=== PATIENT | male | born 1955 | race Caucasian/White ===

== ENCOUNTER 2020-03-11 06:54 | Day surgery (SDC) | payer OTHER, SELFPAY ==
[~2020-03-11] VITALS: Ht 188 cm; Wt 110.2 kg
[2020-03-11] MEDS ORDERED: SIMETHICONE 40 MG/0.6 ML ML ONE (07:24)
[2020-03-11] MEDS: fentaNYL CITRATE/PF 100 MCG/2 ML AMP ONE ×2 (08:08→08:11)
[2020-03-11] MEDS: MIDAZOLAM HCL 5 MG/5 ML VIAL ONE ×3 (08:08→08:13)
[2020-03-11 09:23] VITALS: BP_SYST 131
== END 2020-03-11 09:20 | disposition home or self-care (01) ==
LOC: SMU 06:54 → SDS 06:54
PROVIDERS: ATTEND Internal Medicine
DX: R13.10 Dysphagia, unspecified (principal); K29.70 Gastritis, unspecified, without bleeding; Z20.828 Contact with and (suspected) exposure to other viral communicable diseases; Z79.899 Other long term (current) drug therapy
CPT/HCPCS: 36415; 43239; 87081; 88305; 88312; 88313; 99152; G0378; J2250; J3010; J7030; U0003

== ENCOUNTER 2022-11-12 17:12 | Inpatient (IN) | payer OTHER ==
[~2022-11-12] VITALS: Ht 182.9 cm; Wt 90.7 kg
[~2022-11-12 17:12] MED LIST: ACET325T39 PO; APIX5TAB PO; BISA-79 PO; CALC500T3 PO; DOCU-159 PO; IPRA3AMP19 INH; LIP10 PO; MEMA10TA56 PO; ONDA4TAB5 PO; PRO10 PO; PSYL1PAC10 PO; QUET50TA92 PO; RIVA6CAP18 PO; TRAZ-250 PO
[2022-11-12 17:24] VITALS: RESP 20; O2SAT 98
[2022-11-12 20:42] LABS: BASOPHILS % (AUTO) 0.6 % (0.0-2.0); EOSINOPHILS # (AUTO) 0.1 K/uL (0.0-0.4); EOSINOPHILS % (AUTO) 1.2 % (0.0-4.0); HEMATOCRIT 44.1 % (36-54); HEMOGLOBIN 14.7 g/dL (14.0-18.0); LYMPHOCYTES # (AUTO) 1.8 K/uL (1.0-5.5); LYMPHOCYTES % (AUTO) 26.7 % (20.5-51.5); MEAN CORPUSCULAR HEMOGLOBIN 31 pg (27-31); MEAN CORPUSCULAR HGB CONC 33 % (32-36); MEAN CORPUSCULAR VOLUME 94 fL (79.0-98.0); MONOCYTES # (AUTO) 0.6 K/uL (0.0-1.0); MONOCYTES % (AUTO) 9.4 % (1.7-9.3); NEUTROPHILS # (AUTO) 4.2 K/uL (1.8-7.7); NEUTROPHILS % (AUTO) 62.1 % (40.0-70.0); PLATELET COUNT (AUTO) 229 K/uL (130-430); RED BLOOD CELL COUNT(AUTO) 4.71 MIL/uL (4.2-6.2); RED CELL DISTRIBUTION WIDTH 13.5 % (9.0-15.0); WHITE BLOOD COUNT (AUTO) 6.8 K/uL (4.8-10.8)
[2022-11-12 20:46] LABS: ANION GAP 10 (5-15); CALCIUM 9.1 mg/dL (8.4-11.0); CARBON DIOXIDE 27 mmol/L (23-29); CHLORIDE 102 mmol/L (98-107); CREATININE 0.96 mg/dL (0.55-1.30); GFR AFRICAN AMERICAN 100 mL/min (>90); GLUCOSE 81 mg/dL (74-106); POTASSIUM 3.8 mmol/L (3.5-5.1); SODIUM SERUM 139 mmol/L (136-145); UREA NITROGEN, BLOOD 17 mg/dL (8-21)
[2022-11-12 20:47] LABS: GFR NON AFRICAN-AMERICAN 83 mL/min (>90)
[2022-11-12 20:49] LABS: INR 1.1 (0.80-1.20); PROTHROMBIN TIME 11.3 SECS (9.5-12.5)
[2022-11-12 21:01] LABS: ALANINE AMINOTRANSFERASE 36 U/L (12-78); ALBUMIN 3.8 g/dL (3.4-4.8); ASPARTATE AMINOTRANSFERASE 21 U/L (10-37); TOTAL BILIRUBIN 0.7 mg/dL (0.0-1.0); TOTAL PROTEIN, SERUM 6.6 g/dL (6.4-8.3)
[2022-11-12] MEDS: NORMAL SALINE 5 ML DISP.SYRIN IVF SCH (23:15)
[2022-11-12 23:56] LABS: BILIRUBIN,URINE NEGATIVE (NEGATIVE); BLOOD, URINE NEGATIVE (NEGATIVE); CLARITY/URINE Clear (CLEAR); COLOR,URINE YELLOW (YELLOW); GLUCOSE,URINE NEGATIVE (NEGATIVE); KETONES,URINE 1+ (NEGATIVE); NITRITE, URINE NEGATIVE (NEGATIVE); PROTEIN URINE NEGATIVE (NEGATIVE); UROBILINOGEN,URINE 0.2 (0.2-1.0)
[2022-11-13 00:30] LABS: LEUKOCYTE ESTERASE ,URINE NEGATIVE (NEGATIVE)
[2022-11-13] MEDS ORDERED: MIDAZOLAM HCL 5 MG/5 ML VIAL IM ONE (02:45)
[2022-11-13] MEDS ORDERED: HALOPERIDOL LACTATE 5 MG/ML VIAL IM ONE (02:45)
[2022-11-13 05:59] VITALS: BP_SYST 121; RESP 16; TEMP 97.7; O2SAT 97
[2022-11-13 06:00] VITALS: BP_SYST 121; PULSE 71; RESP 16; TEMP 97.3
[2022-11-13 08:23] VITALS: BP_SYST 118; PULSE 68; RESP 12; TEMP 95.9; O2SAT 98
[2022-11-13] MEDS: DOCUSATE SODIUM 100 MG CAPSULE PO SCH (09:54)
[2022-11-13] MEDS: QUEtiapine FUMARATE 25 MG TABLET PO SCH ×2 (09:55→20:14)
[2022-11-13] MEDS: APIXABAN 2.5 MG TABLET PO SCH ×2 (09:55→21:41)
[2022-11-13] MEDS: MEMANTINE HCL 5 MG TABLET PO SCH ×2 (09:55→20:14)
[2022-11-13] MEDS: CALCIUM 500 MG/TAB PO SCH (09:56)
[2022-11-13] MEDS: FLUoxetine HCL 10 MG CAPSULE (PROzac) PO SCH (09:56)
[2022-11-13] MEDS: RIVASTIGMINE TARTRATE 1.5 MG CAPSULE (EXELON) PO SCH ×2 (09:56→20:13)
[2022-11-13 12:35] VITALS: BP_SYST 106; PULSE 84; RESP 17; TEMP 97.2; O2SAT 97
[2022-11-13] MEDS: NORMAL SALINE 5 ML DISP.SYRIN IVF SCH (14:00)
[2022-11-13 16:12] VITALS: BP_SYST 110; PULSE 81; RESP 16; TEMP 97.4; O2SAT 96
[2022-11-13] MEDS: ATORVASTATIN 10 MG TABLET PO SCH (20:14)
[2022-11-13 21:00] VITALS: BP_SYST 111; PULSE 88; RESP 20; TEMP 97.3; O2SAT 98
[2022-11-13] MEDS ORDERED: traZODone HCL 50 MG TABLET (DESYREL) PO SCH (21:00)
[2022-11-14 07:48] VITALS: BP_SYST 140; PULSE 88; RESP 16; TEMP 98.2; O2SAT 95
[2022-11-14 08:00] VITALS: O2SAT 98
[2022-11-14] MEDS: MEMANTINE HCL 5 MG TABLET PO SCH ×2 (09:59→21:28)
[2022-11-14] MEDS: FLUoxetine HCL 10 MG CAPSULE (PROzac) PO SCH (09:59)
[2022-11-14] MEDS: QUEtiapine FUMARATE 25 MG TABLET PO SCH ×2 (10:00→21:28)
[2022-11-14] MEDS: DOCUSATE SODIUM 100 MG CAPSULE PO SCH (10:00)
[2022-11-14] MEDS: CALCIUM 500 MG/TAB PO SCH (10:04)
[2022-11-14] MEDS: APIXABAN 2.5 MG TABLET PO SCH ×2 (10:04→21:29)
[2022-11-14] MEDS: RIVASTIGMINE TARTRATE 1.5 MG CAPSULE (EXELON) PO SCH (10:59)
[2022-11-14 11:34] VITALS: BP_SYST 111; PULSE 86; RESP 18; TEMP 98.5; O2SAT 98
[2022-11-14] MEDS: NORMAL SALINE 5 ML DISP.SYRIN IVF SCH ×3 (13:22→21:30)
[2022-11-14 15:38] VITALS: BP_SYST 114; PULSE 88; RESP 18; TEMP 97.8; O2SAT 97
[2022-11-14 20:15] VITALS: O2SAT 96
[2022-11-14 21:00] VITALS: BP_SYST 112; PULSE 84; RESP 20; TEMP 97.5; O2SAT 97
[2022-11-14] MEDS: ATORVASTATIN 10 MG TABLET PO SCH (21:28)
[2022-11-15 04:14] LABS: BASOPHILS % (AUTO) 0.7 % (0.0-2.0); EOSINOPHILS # (AUTO) 0.1 K/uL (0.0-0.4); EOSINOPHILS % (AUTO) 1.7 % (0.0-4.0); HEMATOCRIT 44.8 % (36-54); HEMOGLOBIN 14.8 g/dL (14.0-18.0); LYMPHOCYTES # (AUTO) 1.7 K/uL (1.0-5.5); LYMPHOCYTES % (AUTO) 31.1 % (20.5-51.5); MEAN CORPUSCULAR HEMOGLOBIN 31 pg (27-31); MEAN CORPUSCULAR HGB CONC 33 % (32-36); MEAN CORPUSCULAR VOLUME 93 fL (79.0-98.0); MONOCYTES # (AUTO) 0.5 K/uL (0.0-1.0); MONOCYTES % (AUTO) 8.8 % (1.7-9.3); NEUTROPHILS # (AUTO) 3.2 K/uL (1.8-7.7); NEUTROPHILS % (AUTO) 57.7 % (40.0-70.0); PLATELET COUNT (AUTO) 230 K/uL (130-430); RED BLOOD CELL COUNT(AUTO) 4.81 MIL/uL (4.2-6.2); RED CELL DISTRIBUTION WIDTH 13.7 % (9.0-15.0); WHITE BLOOD COUNT (AUTO) 5.5 K/uL (4.8-10.8)
[2022-11-15 04:47] LABS: ALBUMIN 3.5 g/dL (3.4-4.8); CREATININE 1.06 mg/dL (0.55-1.30); POTASSIUM 3.8 mmol/L (3.5-5.1); TOTAL BILIRUBIN 1.1 mg/dL (0.0-1.0); TOTAL PROTEIN, SERUM 6.1 g/dL (6.4-8.3)
[2022-11-15] MEDS: NORMAL SALINE 5 ML DISP.SYRIN IVF SCH ×3 (06:00→21:52)
[2022-11-15 09:00] VITALS: BP_SYST 129; PULSE 90; RESP 20; TEMP 97.5; O2SAT 99
[2022-11-15] MEDS: DOCUSATE SODIUM 100 MG CAPSULE PO SCH (09:11)
[2022-11-15] MEDS: QUEtiapine FUMARATE 25 MG TABLET PO SCH ×2 (09:11→21:48)
[2022-11-15] MEDS: MEMANTINE HCL 5 MG TABLET PO SCH ×2 (09:11→21:49)
[2022-11-15] MEDS: CALCIUM 500 MG/TAB PO SCH (09:11)
[2022-11-15] MEDS: FLUoxetine HCL 10 MG CAPSULE (PROzac) PO SCH (09:11)
[2022-11-15] MEDS: APIXABAN 2.5 MG TABLET PO SCH ×2 (09:15→21:50)
[2022-11-15 11:17] VITALS: BP_SYST 109; PULSE 71; RESP 17; TEMP 97.5; O2SAT 97
[2022-11-15 16:41] VITALS: BP_SYST 112; PULSE 84; RESP 19; TEMP 98.4; O2SAT 96
[2022-11-15 19:45] VITALS: O2SAT 98
[2022-11-15 20:00] VITALS: BP_SYST 95; PULSE 95; RESP 19; TEMP 97.3; O2SAT 98
[2022-11-15] MEDS: MUPIROCIN 1 GM OIN.PF.APP NS SCH ×2 (20:15→21:00)
[2022-11-15] MEDS: ATORVASTATIN 10 MG TABLET PO SCH (21:49)
[2022-11-16 00:44] VITALS: BP_SYST 106; PULSE 77; RESP 17; TEMP 97.3; O2SAT 97
[2022-11-16] MEDS: NORMAL SALINE 5 ML DISP.SYRIN IVF SCH ×3 (01:23→22:00)
[2022-11-16 08:00] VITALS: BP_SYST 111; PULSE 82; RESP 20; TEMP 98.3; O2SAT 94
[2022-11-16] MEDS: DOCUSATE SODIUM 100 MG CAPSULE PO SCH (09:52)
[2022-11-16] MEDS: CALCIUM 500 MG/TAB PO SCH (09:52)
[2022-11-16] MEDS: QUEtiapine FUMARATE 25 MG TABLET PO SCH ×2 (09:52→20:34)
[2022-11-16] MEDS: MEMANTINE HCL 5 MG TABLET PO SCH ×2 (09:52→20:34)
[2022-11-16] MEDS: FLUoxetine HCL 10 MG CAPSULE (PROzac) PO SCH (09:52)
[2022-11-16] MEDS: MUPIROCIN 2% TOPICAL OINTMENT 22 GM NS SCH ×2 (09:54→20:34)
[2022-11-16] MEDS: APIXABAN 2.5 MG TABLET PO SCH ×2 (09:54→20:35)
[2022-11-16 11:30] VITALS: BP_SYST 108; PULSE 92; RESP 18; TEMP 98; O2SAT 95
[2022-11-16 17:30] VITALS: BP_SYST 110; PULSE 94; RESP 19; TEMP 99; O2SAT 97
[2022-11-16 20:00] VITALS: BP_SYST 112; PULSE 77; RESP 18; TEMP 97.9; O2SAT 98
[2022-11-16] MEDS: ATORVASTATIN 10 MG TABLET PO SCH (20:34)
[2022-11-17] VITALS (7 sets, daily range): BP systolic 106–113; PULSE 69–84; RESP 16–18; TEMP 96.6–97.6; O2SAT 95–99
[2022-11-17] MEDS: NORMAL SALINE 5 ML DISP.SYRIN IVF SCH ×4 (06:00→21:24)
[2022-11-17] MEDS: MUPIROCIN 2% TOPICAL OINTMENT 22 GM NS SCH ×2 (09:00→21:14)
[2022-11-17] MEDS: DOCUSATE SODIUM 100 MG CAPSULE PO SCH (09:00)
[2022-11-17] MEDS: MEMANTINE HCL 5 MG TABLET PO SCH ×2 (09:00→21:15)
[2022-11-17] MEDS: CALCIUM 500 MG/TAB PO SCH (09:00)
[2022-11-17] MEDS: FLUoxetine HCL 10 MG CAPSULE (PROzac) PO SCH (12:52)
[2022-11-17] MEDS: APIXABAN 2.5 MG TABLET PO SCH ×2 (12:56→21:16)
[2022-11-17] MEDS: QUEtiapine FUMARATE 25 MG TABLET PO SCH ×2 (13:00→21:15)
[2022-11-17] MEDS: ATORVASTATIN 10 MG TABLET PO SCH (21:14)
[2022-11-18 00:39] VITALS: BP_SYST 99; PULSE 64; RESP 19; TEMP 97.9; O2SAT 96
[2022-11-18] MEDS: NORMAL SALINE 5 ML DISP.SYRIN IVF SCH ×2 (05:28→13:44)
[2022-11-18 08:30] VITALS: BP_SYST 110; PULSE 76; RESP 17; TEMP 97.2; O2SAT 98
[2022-11-18] MEDS: QUEtiapine FUMARATE 25 MG TABLET PO SCH (09:41)
[2022-11-18] MEDS: CALCIUM 500 MG/TAB PO SCH (09:41)
[2022-11-18] MEDS: FLUoxetine HCL 10 MG CAPSULE (PROzac) PO SCH (09:41)
[2022-11-18] MEDS: MEMANTINE HCL 5 MG TABLET PO SCH (09:42)
[2022-11-18] MEDS: DOCUSATE SODIUM 100 MG CAPSULE PO SCH (09:42)
[2022-11-18] MEDS: APIXABAN 2.5 MG TABLET PO SCH (09:52)
[2022-11-18] MEDS: MUPIROCIN 2% TOPICAL OINTMENT 22 GM NS SCH (09:53)
[2022-11-18 11:39] VITALS: BP_SYST 102; PULSE 66; RESP 19; TEMP 97; O2SAT 95
[2022-11-18 14:46] VITALS: O2SAT 98
[2022-11-18 16:17] VITALS: BP_SYST 110; PULSE 69; RESP 18; TEMP 96.8; O2SAT 99
[2022-11-18 19:00] VITALS: BP_SYST 104; PULSE 76; RESP 17; TEMP 97.2; O2SAT 98
== END 2022-11-18 19:52 | DRG 309 ==
LOC: SED 17:12 → STU 23:39 → SMU 11-18 09:14
PROVIDERS: ADMIT Internal Medicine; ATTEND Internal Medicine
PROC: 4A00X4Z Measurement of Central Nervous Electrical Activity, External Approach (ICD-10-PCS; principal; 2022-11-14)
DX: I48.91 Unspecified atrial fibrillation (principal); F02.82 Dementia in other diseases classified elsewhere, unspecified severity, with psychotic disturbance; G91.9 Hydrocephalus, unspecified; G20 Parkinson's disease; E78.5 Hyperlipidemia, unspecified; F91.9 Conduct disorder, unspecified; F02.80 Dementia in other diseases classified elsewhere, unspecified severity, without behavioral disturbance, psychotic disturbance, mood disturbance, and anxiety; Z88.0 Allergy status to penicillin; Z79.899 Other long term (current) drug therapy; Z79.1 Long term (current) use of non-steroidal anti-inflammatories (NSAID); G30.9 Alzheimer's disease, unspecified
CPT/HCPCS: 36415; 70450-TC; 71045; 76376; 80053; 80061; 81003; 83605; 84484; 85025; 85610-TC; 85730-TC; 87040; 87081; 87086; 93005; 95816; 97116-GP; 97163-GP; 97530-GP; 99285; G0378; J1630; J2250; J7050